=== PATIENT | female | born 1990 | race Caucasian/White ===

== ENCOUNTER 2019-07-27 11:50 | Emergency (ER) | payer OTHER, MEDICAID ==
[~2019-07-27] VITALS: Ht 154.9 cm; Wt 81.7 kg
[~2019-07-27 11:50] MED LIST: FOLIC ACID 1 MG1 MG PO; HYDROXYZINE PAM50 MG PO; LANTUS100 UNIT/M SUBQ; NIFEDIPINE10 MG PO; NOHOMEMEDICATIONS; PRENATAL; PRENATAL PO; SYNTHROID PO; XANAX 0.25 MG0.25 MG PO; ZOLOFT 50 MG TA50 M1 PO
[2019-07-27] MEDS ORDERED: LEVO-T100 MCG PO (12:03)
[2019-07-27] MEDS ORDERED: NOVALOG SUBQ (12:03)
[2019-07-27 14:25] VITALS: BP 119/74
== END 2019-07-27 14:38 | disposition home or self-care (01) ==
LOC: M.ERS 11:50
DX: S90.31XA Contusion of right foot, initial encounter (principal); M25.474 Effusion, right foot; E11.9 Type 2 diabetes mellitus without complications; E03.9 Hypothyroidism, unspecified; Z79.4 Long term (current) use of insulin; W22.8XXA Striking against or struck by other objects, initial encounter; Y93.89 Activity, other specified; Y92.89 Other specified places as the place of occurrence of the external cause; Y99.8 Other external cause status

== ENCOUNTER 2019-07-30 08:06 | Emergency (ER) | payer OTHER, MEDICAID ==
[~2019-07-30] VITALS: Ht 162.6 cm; Wt 90.7 kg
[~2019-07-30 08:06] MED LIST changes: +LEVO-T100 MCG PO; +NOVALOG SUBQ
[2019-07-30] MEDS ORDERED: FLEXERIL PO (08:38)
[2019-07-30 08:41] VITALS: BP 138/79
== END 2019-07-30 08:41 | disposition home or self-care (01) ==
LOC: M.ERS 08:06
DX: S09.8XXA Other specified injuries of head, initial encounter (principal); E11.9 Type 2 diabetes mellitus without complications; E03.9 Hypothyroidism, unspecified; W20.8XXA Other cause of strike by thrown, projected or falling object, initial encounter; Y92.89 Other specified places as the place of occurrence of the external cause; Y93.89 Activity, other specified; Y99.8 Other external cause status